=== PATIENT | male | born 1960 | race Caucasian/White ===

== ENCOUNTER 2017-08-18 19:07 | Emergency (ER) | payer SELFPAY ==
[~2017-08-18] VITALS: Ht 170.2 cm; Wt 72.7 kg
[2017-08-18 19:08] VITALS: TEMP 98.5
[2017-08-18 22:18] VITALS: BP 150/91; PULSE 82
== END 2017-08-18 22:28 | disposition home or self-care (01) ==
LOC: COL.ER 19:07
DX: J36 Peritonsillar abscess (principal); F17.210 Nicotine dependence, cigarettes, uncomplicated
CPT/HCPCS: J1100